=== PATIENT | female | born 1990 | race African-American/Black ===

== ENCOUNTER 2017-10-20 08:00 | Inpatient (IN) ==
[2017-10-20] MEDS: RINGER'S SOLUTION,LACTATED 1,000 ML IV PRN ×2 (07:50→09:45)
[~2017-10-20 08:00] MED LIST: OXYTOCIN 20 UNITS in RINGER'S SOLUTION,LACTATED 1,000 ML IV ONE
[2017-10-20] MEDS ORDERED: ceFAZolin SODIUM/DEXTROSE,ISO 2 GM/50 ML BAG IV ONE (08:25)
[2017-10-20] MEDS ORDERED: diphenhydrAMINE HCL 25 MG CAPSULE PO PRN (10:31)
[2017-10-20] MEDS ORDERED: ONDANSETRON HCL/PF 2 MG/ML VIAL IV PRN (10:31)
[2017-10-20] MEDS ORDERED: RINGER'S SOLUTION,LACTATED 1,000 ML IV ONE (10:31)
[2017-10-20] MEDS ORDERED: SIMETHICONE 80 MG TAB.CHEW PO PRN (10:31)
[2017-10-20] MEDS ORDERED: SENNOSIDES 8.6 MG TABLET PO PRN (10:31)
[2017-10-20] MEDS ORDERED: BISACODYL 10 MG SUPP.RECT RC PRN (10:31)
--- NOTE | 2017-10-20 10:38 | OR ---
Operative Report - Dictated Report Narrative: DATE OF PROCEDURE: 10/20/2017 PROCEDURE: 1. Repeat low transverse section ANESTHESIA: Spinal. PREOPERATIVE DIAGNOSES: 1. Intrauterine at 39 2/7 weeks 2. Previous c-sections x 2 POSTOPERATIVE DIAGNOSES: 1. Intrauterine at 39 2/7 weeks 2. Previous c-sections x 2 SURGEON: Keven Espinoza M.D. INTEGRATION SOFTWARE ENGINEER: Amparo Mattson FINDINGS: 1. Thin subcutaneous fatty tissue layer under previous incision. Abdominal fascia was adherent to the peritoneum. Rectus muscles were thin and displaced laterally. Bladder was adherent to the lower uterine segment. 2. female in cephalic presentation. clear amniotic fluid. Weight 3230 g , 9/9, Time of delivery: 09:05 3. Normal uterus, and normal bilateral ovaries and tubes. SPECIMENS: none DRAIN: Gupta to gravity. URINE OUTPUT: 400 ml. BLOOD LOSS: 600 ml. IV FLUIDS: 2800 ml COMPLICATIONS: None. Description of Operative Procedure: The patient consented prior to the operation and was taken to the operating room. Spinal anesthesia was performed without complications. The patient was then placed in the dorsal supine position with leftward tilt. Sequential compression device was placed on the lower extremities and a Gupta catheter was placed into the bladder using sterile technique. Two grams of Ancef was given prior to the start of anesthesia. The abdomen was prepped with Chloraprep and draped in the usual sterile fashion. A time-out procedure was conducted to confirm the correct patient for the correct procedure. Anesthesia was tested and appeared adequate. A Pfannenstiel skin incision was made slightly below the previous incision scar with a scalpel. The incision was carried through the subcutaneous layer to the fascia. The fascia was incised and extended laterally with Collado scissors. The upper edge of the fascia incision was grasped with two Nely clamps, elevated, and the underlying rectus muscles were dissected off. The rectus muscles were thin and displaced laterally, leaving the fascia adhered to the peritoneum. The Nely clamps were repositioned to the lower edge of the fascia incision, which was tented up. Again the fascia was adherent to the peritoneum and dissection to separate them was not possible. There was a small window in the peritoneum during the dissection. This peritoneal incision was extended with good visualization of the bladder. A bladder blade was inserted. The bladder was densely adherent to the lower uterine segment, making the separation between them not possible. So a lower transverse uterine incision was made 1.5 cm above the bladder adhesions. The lower uterine segment was incised in a transverse fashion with the scalpel. The incision was extended laterally by stretching. The bladder blade was removed. The amniotic sac was ruptured with clear fluid. The baby was in cephalic presentation. The head was elevated through the incision. Fundal pressure was applied and the baby was delivered atraumatically. Baby cried immediately after . The cord was clamped and cut. The baby was handed off to the nurse and the admissions clinician in attendance. Cord blood was obtained. The placenta was removed manually. The uterus was exteriorized, and cleared off clots and membrane. The uterine incision was closed with 0 vicryl in a running-lock fashion. A second imbricating layer was placed with 2-0 Vicryl in a continuous non-lock fashion. Good hemostasis and reapproximation were obtained. The posterior cul-de-sac was cleared off clots and fluid. The uterus was returned to the abdomen. The gutters were cleared of blood clots and fluid. The peritoneum was closed with 2-0 Vicryl. The rectus muscle was inspected and found hemostatic. The fascia was reapproximated with #1 Vicryl in running fashion. The subcutaneous layer was irrigated with saline. The subcutaneous layer was closed with 2-0 vicryl continuously. The skin was closed with 3-0 Monocryl suture in a subcuticular fashion. Benzoin was applied to the incision edges. The incision was covered with Steri strips, Telfa, ABD and adhesive pressure dressing tape. The patient tolerated the procedure well. Sponge, lap, needle and instrument counts were correct x 2. The patient was taken to the recovery room in stable condition. The patient received an abdominal tap block under u/s guidance by anesthesia for postop pain management. Keven Espinoza MD History for MU Definition: * The number of deliveries resulting in a live the patient experienced prior to current hospitalization * The previous delivery of live twins or any live multiple gestation is considered one live event. *If primagravida or nulliparous is documented select zero for the number of previous live births. Live Events: 2
--- NOTE | 2017-10-20 11:10 | ANES ---
Post Anesthesia Discharge - Transfer of Care Transfer of Care handoff given to nurse: Yes - Discharge from PACU Discharge from PACU when meets criteria: Yes - Discharge to ASU Discharge to ASU-no complications/pt stable: Yes
--- NOTE | 2017-10-20 11:10 | ANES ---
Anesthesia Procedure Note Procedure Note: ANESTHESIA PROCEDURE NOTE Date of procedure: 10/20/2017. Time of procedure:[]. 1030 Performed by: Robin Santos CRNA [place]er: [] Shawanda Rowland RN . Preprocedure diagnosis: []. Status post section. Desire for postoperative analgesia. Post procedure diagnosis: Same. Procedure:[] Bilateral ultrasound-guided tap block. Indications: []. Postoperative analgesia. Findings: [] Patient placed in a supine position in the PACU. Lateral abdominal wall prepped with ChloraPrep bilaterally. Ultrasound was utilized to identify the fascial layer between the internal oblique and trans-abdominus muscles on the patient's right side. A 20-gauge 4 inch Stimuplex regional block needle was advanced under ultrasound guidance until tip of needle located just distal to fascial layer. 20 mL of 0.25% Marcaine with epinephrine 1-200, 000 was injected. Adequate spread of local anesthesia was noted. Procedure was then repeated on patient's left side. EBL: Minimal. Fluids: N/A. Specimen: N/A. Post procedure condition: The patient tolerated the procedure well. No complications were noted. Thank you for this consultation Robin Santos CRNA
--- NOTE | 2017-10-20 11:11 | ANES ---
Post Anesthesia Assessment - Vital Signs Vitals: Last Vital Signs Temp 36.0 C 10/20/17 10:50 Pulse 73 10/20/17 10:50 Resp 20 10/20/17 10:50 BP 131/70 10/20/17 10:50 Pulse Ox 99 10/20/17 10:50 Airway Patency: Normal - Mental Status Level Of Consciousness: Appropriate, Drowsy - Pain Level Pain Score: 5 - N/V Assessment Nausea/Vomiting Presence: None Dehydration:: No
[2017-10-20] MEDS: oxyCODONE HCL/ACETAMINOPHEN 1 TAB TABLET PO PRN ×3 (12:35→19:47)
[2017-10-20] MEDS: IBUPROFEN 800 MG TABLET PO PRN (19:47)
[2017-10-20] MEDS: DOCUSATE SODIUM 100 MG CAPSULE PO SCH (21:08)
[2017-10-21] MEDS: IBUPROFEN 800 MG TABLET PO PRN ×3 (04:52→19:00)
[2017-10-21] MEDS: oxyCODONE HCL/ACETAMINOPHEN 1 TAB TABLET PO PRN ×5 (04:52→21:58)
[2017-10-21 08:07] LABS: Hematocrit 24.6 % (37.0-47.0); Hemoglobin 8.3 gm/dL (12.5-16.0); Mean Cell Volume 84.5 fl (78-100); Mean Corpuscular Hemoglobin 28.5 pg (27-31); Mean Corpuscular Hgb Conc 33.7 g/dl (32-36); Mean Platelet Volume 8.7 fl (8-12.5); Neutrophil # 8.3 K/mm3 (1.3-6.0); Neutrophil % 78.7 % (42-75.0); Platelet Count 284 K/mm3 (150-450); Red Blood Count 2.91 M/mm3 (4.2-5.4); Red Cell Distribution Width 13.8 % (11.5-14.0); White Blood Count 10.5 K/mm3 (4.0-10.5)
[2017-10-21] MEDS: DOCUSATE SODIUM 100 MG CAPSULE PO SCH ×2 (09:35→21:58)
--- NOTE | 2017-10-21 13:51 | PN ---
Subjective - Date and Time Seen Date: 10/21/17 Time: 13:51 Objective - Vitals Vitals: Last Vital Signs Temp 36.6 C 10/21/17 07:27 Pulse 81 10/21/17 07:27 Resp 16 10/21/17 07:27 BP 117/76 10/21/17 07:27 Pulse Ox 99 10/21/17 07:27 Patient denies complaints. Tolerating regular diet. Ambulating without difficulty. Pain well controlled. Lochia wnl. Abdomen - soft, appropriately tender Incision - clean, dry, intact Uterus - firm, at umbilicus -1 No calf tenderness Impression: Post op day #1 s/p repeat section. Plan: Continue routine post-operative/ care - Abnormal Lab Findings Abnormal Lab Findings: Abnormal Lab Results 10/21/17 Range/Units 07:55 RBC 2.91 L (4.2-5.4) M/mm3 Hgb 8.3 L (12.5-16.0) gm/dL Hct 24.6 L (37.0-47.0) % Immature Gran % (Auto) 0.80 H (0.001-0.429) % Immature Gran # (Auto) 0.08 H (0.000-0.0310) K/mm3 Neutrophils % 78.7 H (42-75.0) % Lymphocytes % 13.7 L (20-51) % Neutrophils # 8.3 H (1.3-6.0) K/mm3 Lymphocytes # 1.44 L (1.5-3.5) k/mm3 Cauti Physician Documentation - Urinary Catheter Management Urethral (Gupta) Date of Insertion: 10/20/17 Time of Insertion: 08:35
[2017-10-22] MEDS: oxyCODONE HCL/ACETAMINOPHEN 1 TAB TABLET PO PRN ×2 (02:29→09:17)
[2017-10-22] MEDS: IBUPROFEN 800 MG TABLET PO PRN ×2 (02:30→09:16)
[2017-10-22] MEDS: DOCUSATE SODIUM 100 MG CAPSULE PO SCH (09:16)
[2017-10-22 09:19] VITALS: BP 132/77
--- NOTE | 2017-10-22 12:01 | PN ---
Subjective - Date and Time Seen Date: 10/22/17 Subjective Narrative: Post op day 2, s/p repeat c/s doing well. ambulating and tolerating diet well. pain controlled. normal lochia. patient desired to go home today. Objective - Vitals Vitals: Last Vital Signs Temp 36.8 C 10/22/17 09:17 Pulse 91 10/22/17 09:17 Resp 18 10/22/17 09:17 BP 132/77 10/22/17 09:17 Pulse Ox 99 10/22/17 09:17 - Exam Constitutional: Present: Alert, Oriented x3, Cooperative Respiratory: Present: no respiratory distress Abdomen: Present: soft, nontender, nondistended, other - fundus firm and below umbilicus. Incision dry and clena with steri strip intact. Extremity: Present: normal range of motion, no pedal edema, no calf tenderness Skin Exam: Present: normal color, warm/dry, no cyanosis Appearance: Present: appropriate appearance Eye contact: Present: cooperative, good eye contact, normal speech Cauti Physician Documentation - Urinary Catheter Management Urethral (Gupta) Date of Insertion: 10/20/17 Time of Insertion: 08:35 Assessment/Plan Plan Narrative: A: Post op day 2, s/p repeat c/s, stable and well. Plan: will discharge home today. Keven Espinoza MD
--- NOTE | 2017-11-02 10:23 | ANES ---
Anesthesia Pre Procedure Eval Vitals/Labs: Last Vital Signs Temp 36.8 C 10/22/17 09:17 Pulse 91 10/22/17 09:17 Resp 18 10/22/17 09:17 BP 132/77 10/22/17 09:17 Pulse Ox 99 10/22/17 09:17 HOME MEDICATIONS Acetaminophen [Tylenol] 500 mg PO PRN PRN 10/20/17 [Last Taken 10/16/17] Ibuprofen [Motrin] 800 mg PO Q8H PRN #30 tab 10/22/17 [Last Taken Unknown] Allergies/Adverse Reactions: Allergies Allergy/AdvReac Type Severity Reaction Status Date / Time No Known Allergies Allergy Verified 10/29/17 15:27 - Planned Procedure Planned Procedure: R C/s 10/20/17 @ 0905 viable female Gbs- Medical History (Last Reviewed 11/02/17 @ 10:22 by Mich Santos CRNA) Tobacco abuse Onset Date: 03/24/17 Surgical History (Last Reviewed 11/02/17 @ 10:22 by Mich Santos CRNA) History of Onset Date: 10/13/17 History of tonsillectomy Onset Date: Unknown Family History (Last Reviewed 11/02/17 @ 10:22 by Mich Santos CRNA) Grandmother Hypertension - Family Anesthesia History Family History:: no untoward family reactions to anesthesia - Airway/Neck/Teeth Within Normal Limits:: Yes Mallampatti Score: 2 Thyromental (T-M) distance: > 6 cm Mandibulo Hyoid distance: > 3 cm - Respiratory Respiratory: lungs clear - Cardiovascular Patient History - Cardiac/Respiratory: No pertinent hx Tolerates Activity: Good Heart Sounds: S1 & S2, Regular - Anesthesia Assessment and Plan ASA Class: PS, II Anesthesia Type Plan: Spinal - bilat tap block for postop analgesia
[2017-11-04 12:50] LABS: Hemoglobin 9.6 gm/dL (12.5-16.0); Red Blood Count 3.37 M/mm3 (4.2-5.4); White Blood Count 8.5 K/mm3 (4.0-10.5)
[2017-11-04 12:51] LABS: Hematocrit 28.1 % (37.0-47.0); Mean Cell Volume 83.4 fl (78-100); Mean Corpuscular Hemoglobin 28.5 pg (27-31); Mean Corpuscular Hgb Conc 34.2 g/dl (32-36); Mean Platelet Volume 8.9 fl (8-12.5); Neutrophil # 5.4 K/mm3 (1.3-6.0); Neutrophil % 63.6 % (42-75.0); Platelet Count 319 K/mm3 (150-450); Red Cell Distribution Width 13.5 % (11.5-14.0)
== END 2017-10-22 13:00 | disposition home or self-care (01) | DRG 766 ==
LOC: OB 11:34
PROVIDERS: ADMIT Obstetrics & Gynecology; ATTEND Obstetrics & Gynecology
DX: O34.211 Maternal care for low transverse scar from previous cesarean delivery; O99.334 Smoking (tobacco) complicating childbirth; Z37.0 Single live birth; Z3A.39 39 weeks gestation of pregnancy; F17.210 Nicotine dependence, cigarettes, uncomplicated
CPT/HCPCS: 36415; 59025; 85025; 86850; 86900

== ENCOUNTER 2018-09-24 04:42 | Inpatient (IN) ==
[2018-09-24] MEDS ORDERED: ceFAZolin SODIUM/DEXTROSE,ISO 2 GM/50 ML BAG IV ONE (06:03)
[2018-09-24] MEDS ORDERED: OXYTOCIN 20 UNITS in RINGER'S SOLUTION,LACTATED 1,000 ML IV ONE ×2 (06:03→10:12)
[2018-09-24] MEDS ORDERED: RINGER'S SOLUTION,LACTATED 1,000 ML IV PRN (06:03)
[2018-09-24 06:21] LABS: Cocaine Ur Negative (NEGATIVE); Urine Barbiturate Negative (NEGATIVE); Urine Benzodiazepines Negative (NEGATIVE); Urine Opiates Negative (NEGATIVE); Urine PCP Negative (NEGATIVE); Urine THC Negative (NEGATIVE)
[2018-09-24 06:28] LABS: Hematocrit 27.5 % (37.0-47.0); Hemoglobin 9.2 gm/dL (12.5-16.0); Mean Cell Volume 83.1 fl (78-100); Mean Corpuscular Hemoglobin 27.8 pg (27-31); Mean Corpuscular Hgb Conc 33.5 g/dl (32-36); Neutrophil # 4.9 K/mm3 (1.3-6.0); Neutrophil % 60.6 % (42-75.0); Platelet Count 308 K/mm3 (150-450); Red Blood Count 3.31 M/mm3 (4.2-5.4); Red Cell Distribution Width 15.1 % (11.5-14.0)
--- NOTE | 2018-09-24 06:50 | ANES ---
Anesthesia Pre Procedure Eval Vitals/Labs: Last Vital Signs Temp 36.4 C 09/24/18 05:50 Pulse 69 09/24/18 05:50 Resp 18 09/24/18 05:50 BP 133/87 09/24/18 05:50 Pulse Ox 97 09/24/18 05:50 HOME MEDICATIONS Acetaminophen [Tylenol] 500 mg PO PRN PRN 10/20/17 [Last Taken 09/18/18] Allergies/Adverse Reactions: Allergies Allergy/AdvReac Type Severity Reaction Status Date / Time No Known Allergies Allergy Verified 09/24/18 04:50 - Planned Procedure Planned Procedure: Repeat /c Bilateral Salpingectomy Medication List Reviewed:: Yes Allergies Verified: Yes Medical History (Updated 09/21/18 @ 11:46 by Lyssa Nagy MD) Tobacco abuse Onset Date: 03/24/17 Surgical History (Updated 09/21/18 @ 11:41 by Lyssa Nagy MD) History of Onset Date: 10/13/17 x 3 - 10/13/17, 05/05/13, 01/11/09 History of tonsillectomy Onset Date: Unknown Family History (Updated 03/03/18 @ 09:48 by Autumn Martinez LPN) Grandmother Hypertension maternal Mother Alive and well Father Alive and well - Family Anesthesia History Family History:: no untoward family reactions to anesthesia, no familial bleeding tendencies, no family history of clotting disorders, no family history of premature - Airway/Neck/Teeth Within Normal Limits:: Yes Teeth Condition: intact Neck Exam: full range of motion Thyromental (T-M) distance: > 6 cm Mandibulo Hyoid distance: > 3 cm - Respiratory Respiratory Physical: lungs clear Smoking Status: Current every day smoker - 3-4 ciggarrettes per day Discussed smoking cessation including day of surgery: Yes - none today Sleep Apnea currently treated: No Sleep Apnea by current assessment: No - Cardiovascular Tolerate Activity: Fair Heart Sounds: S1 & S2, Regular, Murmur - slight at apex - Anesthesia Assessment and Plan ASA Class: PS, II Anesthesia Type Plan: Block - Bilateral TAP block for post op pain relief, Spinal
[2018-09-24] MEDS: RINGER'S SOLUTION,LACTATED 1,000 ML IV PRN ×3 (07:02→19:36)
[2018-09-24] MEDS ORDERED: SENNOSIDES 8.6 MG TABLET PO PRN (10:12)
[2018-09-24] MEDS ORDERED: HYDROcodone/ACETAMINOPHEN 1 EACH TABLET PO PRN (10:12)
[2018-09-24] MEDS ORDERED: RINGER'S SOLUTION,LACTATED 1,000 ML IV ONE (10:12)
[2018-09-24] MEDS ORDERED: ONDANSETRON HCL/PF 2 MG/ML VIAL IV PRN (10:12)
[2018-09-24] MEDS ORDERED: BISACODYL 10 MG SUPP.RECT RC PRN (10:12)
[2018-09-24] MEDS ORDERED: diphenhydrAMINE HCL 25 MG CAPSULE PO PRN (10:12)
[2018-09-24] MEDS ORDERED: SIMETHICONE 80 MG TAB.CHEW PO PRN (10:12)
--- NOTE | 2018-09-24 10:28 | ANES ---
Post Anesthesia Discharge - Transfer of Care Transfer of Care handoff given to nurse: Yes - Discharge from PACU Discharge from PACU when meets criteria: Yes - Comfortable in PACU.
--- NOTE | 2018-09-24 10:33 | ANES ---
Anesthesia Procedure Note Procedure Note: ANESTHESIA PROCEDURE NOTE Date of Procedure: 09/24/2018 Time of procedure: 10:10 AM. Performed by: REED Brown CRNA, MSN Correctional Officer Chief: June Alan RN. Preprocedure diagnosis: Post section pain. Post procedure diagnosis: Same. Procedure: Bilateral TAP block Indications: Post section pain relief. Findings: See below. Details of the procedure: The patient was still under light anesthesia in the supine position. Since she was extremely anxious and the spinal was most likely worn off at this time, I doubted very much that she would tolerate an awake insertion of a tap block. Further the ultrasound was on the available so the classic blind technique was utilized. The patient was prepped with chlorhexidine and a 4 inch block needle until the tip of the needle rested in the plane between the muscles, identified by the second distinct pop of fascia. 25 mL bupivacaine 0.5% with 1-200,000 epinephrine was injected and the procedure was repeated on the other side. Nearly immediately after injection of the bilateral block, patient's respiration much less labored and was his reactive. EBL: 0 Fluids: N/A. Specimen: N/A. Post procedure condition: The patient tolerated the procedure well. No complications were noted. Thank you for this consultation. Jimbo James CRNA, MSN
[2018-09-24] MEDS ORDERED: HYDROmorphone HCL 2 MG/ML VIAL IM ONE (10:43)
--- NOTE | 2018-09-24 10:53 | OR ---
Operative Report - Dictated Report Narrative: Date of delivery: 09/24/2018 Time of delivery: 809 Gender: female weight: 2515 grams APGARS: 8/9 Preoperative diagnosis: IUP @ 39w 1d, anemia, smoker, insufficient care, history of delivery x3, desires sterilization Postoperative diagnosis: IUP @ 39w 1d, anemia, smoker, insufficient care, history of delivery x3, desires sterilization. Acute blood loss anemia, uncontrolled bleeding from the uterus requiring emergent supracervical hysterectomy Procedure: Abdominal scar revision (15 cm), Repeat delivery, bilateral salpingectomy, supracervical hysterectomy Anesthesia: Spinal followed by ANITAA Anesthesiologist: Jimbo James CRNA Description of the procedure: The patient was taken to the operating room where spinal anesthesia was induced without difficulty. She was then prepped and draped in the supine position in the standard surgical fashion. An elliptical incision was made around two prior scars that were visible. This area was removed and it was 15 cm. The incision was continued through the subcutaneous tissue. There was fascial defect in the midline and the peritoneum was entered rather quickly. A large Anival retractor was placed. The uterus was incised in a low transverse fashion. The head delivered without difficulty. The rest of the was delivered atramautically. A loose nuchal cord was reduced. The cord was clamped and cut and the was handed off to the attending pediatric staff. The placenta was delivered by placing my hand in the uterus as the placenta was not coming easily and I wanted to avoid uterine inversion. There were trailing membranes that were removed. The uterus was cleared of all clots and debris. The uterus was closed with 0-vicryl in a running locking fashion. Three additional figure of eight sutures were placed in the uterus for hemostasis. Attention was then turned to the fallopian tubes. The right fallopian tube was grasped with a Stanley clamp. The Ligasure device was used to cut along the mesosalpinx of the fallopian tube all the way to the cornual region. Hemostasis was adequate. The same procedure was repeated on the right. The right was examined and bleeding was noted. Attempts were made at controlling the bleeding with electrocautery. The bleeding increased significantly and was pumping. A total of 9 sutures of figure of eights using 0-vicryl were placed and many of the sutures ripped through the uterus. I decided to proceed with emergent hysterectomy as I was unable to control the bleeding. At this point I also asked that the patient be typed and crossed for one unit of blood. The left round ligament was transected. The incision was carried through the anterior and posterior leaves of the broad ligament. The left utero-ovarian ligament was doubly clamped and transected. An 0-vicryl suture was placed to secure this area. Then a bladder flap was created anteriorly. The uterine arteries were clamped and progressively clamped and suture ligated. The same procedure was repeated on the left. The uterus was transected supracervically. A 2-0 vicryl suture was used to close the supracervical area. At this point Yossi was used to control oozing but it didn't work. Surgicel was also used without success. Bleeding was noted from the posterior cervix and thus several sutures of 2-0 vicryl on an SH needle were placed for hemostasis. Next, bleeding was noted from the right vascular pedicle. A 2-0 vicryl suture on an SH was placed for hemostasis closing the peritoneum while also achieving hemostasis. A second round of Yossi and Surgicel was placed and again bleeding was not controlled. Bleeding was again noted from the posterior cervix and additional figure of eight 0-vicryl sutures were placed. The left pedicle was also made hemostatic with 2-0 vicryl on an SH needle. Additional Yossi and Jostin gicel were placed and hemostasis was adequate. Attention was then turned to the fascia and the superior fascia was made hemostatic. The omentum which was adherent to the anterior abdominal wall was a lso made hemostatic. The rectus muscles were made hemostatic. The fascia was closed with 1-0 vicryl in a continuous fashion. The subcutaneous tissue was made hemostatic with electrocautery. The skin was closed with 3-0 monocryl on a Michael needle. Dermabond was placed over the incision. A pressure dressing was placed over the incision. Given the amount of bleeding an additional unit of blood was ordered as well as two units of FFPs. Complications: uncontrolled bleeding leading to emergent supracervical hysterectomy EBL: 1400 mL Specimens: Placenta, fallopian tubes, uterus
[2018-09-24] MEDS ORDERED: HYDROmorphone HCL 1 MG/ML DISP.SYRIN IM ONE (11:00)
--- NOTE | 2018-09-24 11:00 | ANES ---
Post Anesthesia Assessment - Vital Signs Vitals: Last Vital Signs Temp 36.2 C 09/24/18 10:26 Pulse 59 L 09/24/18 10:50 Resp 22 H 09/24/18 10:50 BP 135/84 09/24/18 10:50 Pulse Ox 100 09/24/18 10:50 Airway Patency: Normal - Mental Status Level Of Consciousness: Awake, Alert, Appropriate - Pain Level Pain Score: 7 - N/V Assessment Nausea/Vomiting Presence: None Dehydration:: No
[2018-09-24] MEDS ORDERED: diphenhydrAMINE HCL 50 MG/ML VIAL IV PRN (11:17)
[2018-09-24] MEDS ORDERED: NALOXONE HCL 1 MG/1 ML SYRG IV PRN (11:17)
[2018-09-24] MEDS ORDERED: MORPHINE SULFATE 50 MG CARTRIDGE IV PRN (11:17)
[2018-09-24 11:44] LABS: Hemoglobin 12.5 gm/dL (12.5-16.0); Mean Cell Volume 83.5 fl (78-100); Mean Corpuscular Hemoglobin 27.5 pg (27-31); Mean Corpuscular Hgb Conc 32.9 g/dl (32-36); Mean Platelet Volume 8.9 fl (8-12.5); Neutrophil # 16.4 K/mm3 (1.3-6.0); Neutrophil % 86.4 % (42-75.0); Platelet Count 308 K/mm3 (150-450); Red Blood Count 4.55 M/mm3 (4.2-5.4); Red Cell Distribution Width 14.9 % (11.5-14.0)
[2018-09-24 11:51] LABS: Prothrombin Time (Patient) 9.7 Seconds (9.1-10.7)
[2018-09-24 11:56] LABS: INR 0.98 INR (0.92-1.08); Partial Thrombolplastin Time 26.5 Seconds (24-32)
--- NOTE | 2018-09-24 13:39 | PN ---
Progess Note - Interim Date: 09/24/18 Time: 13:35 Narrative: 09/24/18 13:35 Came to see patient to explain the intraoperative findings. The patient is sleepy and she does not remember me telling her that I was going to do a hysterectomy due to not being able to control the bleeding from the left side of the uterus after I removed her tube. I will readdress this with her tomorrow as she is still sleepy and falling asleep while I am talking to her. BPs remain in the mild range which could be secondary to pre-eclampsia. Check CBC, CMP, UP:CR If the BPs elevate to the severe range then will administer magnesium for seizure prophylaxis
[2018-09-24 14:00] LABS: Hematocrit 35.9 % (37.0-47.0); Hemoglobin 11.8 gm/dL (12.5-16.0); Mean Cell Volume 83.7 fl (78-100); Mean Corpuscular Hemoglobin 27.5 pg (27-31); Mean Corpuscular Hgb Conc 32.9 g/dl (32-36); Neutrophil % 91.6 % (42-75.0); Platelet Count 286 K/mm3 (150-450); Red Blood Count 4.29 M/mm3 (4.2-5.4); Red Cell Distribution Width 14.9 % (11.5-14.0); White Blood Count 15.3 K/mm3 (4.0-10.5)
[2018-09-24 14:11] LABS: Random Urine Total Protein 9.2 mg/dL (0-12)
[2018-09-24 14:15] LABS: Albumin * 2.4 gm/dl (3.4-5.0); Anion Gap 15.2 mmol/L (6.8-13.8); BUN/Creatinine Ratio 7.4 (9.0-21.6); Bilirubin, Total 0.3 mg/dL (0.0-1.1); Ca. Corrected For Albumin 9.4 mg/dL (8.4-10.2); Calcium * 8.4 mg/dL (7.9-10.9); Carbon Dioxide 24.5 mmol/L (24-32.6); Potassium 3.7 mmol/L (3.4-4.6); Total Protein 6.1 gm/dL (6.2-8.2)
[2018-09-24] MEDS: IBUPROFEN 800 MG TABLET PO PRN (17:35)
[2018-09-24] MEDS: DOCUSATE SODIUM 100 MG CAPSULE PO SCH (23:12)
[2018-09-25] MEDS: IBUPROFEN 800 MG TABLET PO PRN ×3 (01:15→20:18)
[2018-09-25] MEDS: RINGER'S SOLUTION,LACTATED 1,000 ML IV PRN (03:45)
[2018-09-25 07:21] LABS: Hematocrit 28.5 % (37.0-47.0); Hemoglobin 9.6 gm/dL (12.5-16.0); Mean Cell Volume 81.2 fl (78-100); Mean Corpuscular Hemoglobin 27.4 pg (27-31); Mean Corpuscular Hgb Conc 33.7 g/dl (32-36); Mean Platelet Volume 8.8 fl (8-12.5); Neutrophil # 9.8 K/mm3 (1.3-6.0); Neutrophil % 81.2 % (42-75.0); Platelet Count 239 K/mm3 (150-450); Red Blood Count 3.51 M/mm3 (4.2-5.4); Red Cell Distribution Width 14.9 % (11.5-14.0)
--- NOTE | 2018-09-25 08:31 | PN ---
Subjective - Date and Time Seen Date: 09/25/18 Time: 08:20 Subjective Narrative: Patient without complaints Objective Objective Narrative: See vital signs - Review of Systems Generalized/Overall Review: Reports: No Symptoms Reported Misc: All systems neg except as marked - Vitals Vitals: Last Vital Signs Temp 37.0 C 09/25/18 07:11 Pulse 70 09/25/18 07:11 Resp 18 09/25/18 07:11 BP 124/73 09/25/18 07:11 Pulse Ox 97 09/25/18 07:11 - Abnormal Lab Findings Abnormal Lab Findings: Abnormal Lab Results 09/24/18 09/24/18 09/24/18 Range/Units 06:23 11:35 13:50 WBC 19.0 H D 15.3 H (4.0-10.5) K/mm3 RBC (4.2-5.4) M/mm3 Hgb 11.8 L (12.5-16.0) gm/dL Hct 35.9 L (37.0-47.0) % RDW 14.9 H 14.9 H (11.5-14.0) % Immature Gran % (Auto) 1.60 H 0.50 H (0.001-0.429) % Immature Gran # (Auto) 0.30 H 0.08 H (0.000-0.0310) K/mm3 Neutrophils % 86.4 H 91.6 H (42-75.0) % Lymphocytes % 9.8 L 5.7 L (20-51) % Neutrophils # 16.4 H 14.0 H (1.3-6.0) K/mm3 Lymphocytes # 0.88 L (1.5-3.5) k/mm3 Anion Gap (6.8-13.8) mmol/L Est GFR (Non-Af Amer) (60-130) mL/min BUN/Creatinine Ratio (9.0-21.6) Alkaline Phosphatase (50-170) U/L Total Protein (6.2-8.2) gm/dL Albumin (3.4-5.0) gm/dl Ur Random Creatinine (60-200) mg/dL U Raymond Prot/Creat Ratio (0-199) mg/gm Crossmatch See Detail 09/24/18 09/24/18 09/25/18 Range/Units 13:50 13:50 07:17 WBC 12.0 H D (4.0-10.5) K/mm3 RBC 3.51 L (4.2-5.4) M/mm3 Hgb 9.6 L (12.5-16.0) gm/dL Hct 28.5 L (37.0-47.0) % RDW 14.9 H (11.5-14.0) % Immature Gran % (Auto) 0.60 H (0.001-0.429) % Immature Gran # (Auto) 0.07 H (0.000-0.0310) K/mm3 Neutrophils % 81.2 H (42-75.0) % Lymphocytes % 12.4 L (20-51) % Neutrophils # 9.8 H (1.3-6.0) K/mm3 Lymphocytes # 1.49 L (1.5-3.5) k/mm3 Anion Gap 15.2 H (6.8-13.8) mmol/L Est GFR (Non-Af Amer) 135 H (60-130) mL/min BUN/Creatinine Ratio 7.4 L (9.0-21.6) Alkaline Phosphatase 204 H (50-170) U/L Total Protein 6.1 L (6.2-8.2) gm/dL Albumin 2.4 L (3.4-5.0) gm/dl Ur Random Creatinine 26.3 L (60-200) mg/dL U Raymond Prot/Creat Ratio 350 H (0-199) mg/gm Crossmatch - Exam Constitutional: Present: Alert, Oriented x3, Cooperative, No distress Cardiovascular/Chest: Present: regular rate, rhythm, no murmur Abdomen: Present: soft, nontender, nondistended Extremity: Present: non-tender, no calf tenderness Skin Exam: Present: normal color, warm/dry, no cyanosis Appearance: Present: appropriate appearance Eye contact: Present: cooperative Thoughts: Present: normal thought pattern Cauti Physician Documentation - Urinary Catheter Management Urethral (Gupta) Urethral Indwelling: No Date of Insertion: 09/24/18 Time of Insertion: 07:50 Date of Removal: 09/24/18 Time of Removal: 20:05 Assessment/Plan Plan Narrative: POD 1 s/p hysterectomy Doing well Need for hysterectomy discussed with the patient as I tried to tell her several times yesterday but she was not alert enough and didn't recall talking to me Hemoglobin 9 this morning which is the same as preop since she received two units of PRBCs and two units of FFP as she could not keep her BPs intraop Reassess CBC tomorrow to document stability Discharge POD 2 or 3 depending on hemoglobin and how patient is doing - Problems/Diagnosis (1) Pre-eclampsia Problem: Acute (2) Acute blood loss anemia Problem: Acute (3) History of transfusion of packed RBC Problem: Acute
[2018-09-25] MEDS: DOCUSATE SODIUM 100 MG CAPSULE PO SCH ×2 (09:40→20:18)
[2018-09-25] MEDS: HYDROcodone/ACETAMINOPHEN 1 EACH TABLET PO PRN ×3 (09:41→20:17)
[2018-09-26] MEDS: HYDROcodone/ACETAMINOPHEN 1 EACH TABLET PO PRN (02:43)
[2018-09-26] MEDS: IBUPROFEN 800 MG TABLET PO PRN (02:43)
[2018-09-26 07:13] VITALS: BP 129/78
[2018-09-26 07:14] LABS: Hematocrit 28.8 % (37.0-47.0); Hemoglobin 9.4 gm/dL (12.5-16.0); Mean Cell Volume 83.5 fl (78-100); Mean Corpuscular Hemoglobin 27.2 pg (27-31); Mean Corpuscular Hgb Conc 32.6 g/dl (32-36); Mean Platelet Volume 9.4 fl (8-12.5); Neutrophil # 6.6 K/mm3 (1.3-6.0); Neutrophil % 65.3 % (42-75.0); Platelet Count 267 K/mm3 (150-450); Red Blood Count 3.45 M/mm3 (4.2-5.4); Red Cell Distribution Width 15.2 % (11.5-14.0); White Blood Count 10.1 K/mm3 (4.0-10.5)
[2018-09-26] MEDS: DOCUSATE SODIUM 100 MG CAPSULE PO SCH (09:30)
--- NOTE | 2018-09-26 09:43 | PN ---
Subjective - Date and Time Seen Date: 09/26/18 Time: 09:41 Subjective Narrative: Patient without complaints Objective Objective Narrative: See vital signs - Review of Systems Generalized/Overall Review: Reports: No Symptoms Reported Misc: All systems neg except as marked - Vitals Vitals: Last Vital Signs Temp 36.7 C 09/26/18 06:55 Pulse 60 09/26/18 06:55 Resp 18 09/26/18 06:55 BP 129/78 09/26/18 06:55 Pulse Ox 98 09/26/18 06:55 - Abnormal Lab Findings Abnormal Lab Findings: Abnormal Lab Results 09/26/18 Range/Units 07:09 RBC 3.45 L (4.2-5.4) M/mm3 Hgb 9.4 L (12.5-16.0) gm/dL Hct 28.8 L (37.0-47.0) % RDW 15.2 H (11.5-14.0) % Immature Gran % (Auto) 0.50 H (0.001-0.429) % Immature Gran # (Auto) 0.05 H (0.000-0.0310) K/mm3 Eosinophils % 3.7 H (0.0-3.0) % Neutrophils # 6.6 H (1.3-6.0) K/mm3 - Exam Constitutional: Present: Alert, Oriented x3, Cooperative Abdomen: Present: soft, nontender, nondistended Extremity: Present: non-tender, no calf tenderness Skin Exam: Present: normal color, warm/dry, no cyanosis Appearance: Present: appropriate appearance Eye contact: Present: cooperative Thoughts: Present: normal thought pattern Cauti Physician Documentation - Urinary Catheter Management Urethral (Gupta) Urethral Indwelling: No Date of Insertion: 09/24/18 Time of Insertion: 07:50 Date of Removal: 09/24/18 Time of Removal: 20:05 Assessment/Plan Plan Narrative: POD 2 s/p hysterectomy Doing well Vaginal bleeding is minimal Incision is clean, dry, and intact. Patient to follow-up in 2 weeks to reassess the incision Pre-eclampsia without severe features: BP are mostly normal with one mild range BP. Will reassess BP at 2 week follow-up as well Discharge today. Narcotic Rx previously sent to the patient's pharmacy - Problems/Diagnosis (1) Pre-eclampsia Problem: Acute (2) Acute blood loss anemia Problem: Acute (3) History of transfusion of packed RBC Problem: Acute
== END 2018-09-26 13:30 | disposition home or self-care (01) | DRG 784 ==
LOC: MS 04:42 → OB 11:06 → MS 09-26 05:28
PROVIDERS: ADMIT Obstetrics & Gynecology; ATTEND Obstetrics & Gynecology
CPT/HCPCS: 36415; 59025; 80053; 80307; 82570; 84155; 84156; 85025; 85384; 85610; 85730; 86850; 88302; 88307; J2405; P9016